=== PATIENT | female | born 1980 | race American Indian/Alaskan Native ===

== ENCOUNTER 2016-09-03 11:25 | Day surgery (SDC) | payer OTHER ==
--- NOTE | 2016-09-03 12:48 | Anesthesia Consultation ---
Anesthesia Consult and Med Hx Date of service: 09/03/16 - Airway Anesthetic Teeth Evaluation: Good ROM Head & Neck: Adequate Mental/Hyoid Distance: Adequate Mallampati Class: Class II Intubation Access Assessment: Probably Good - Pulmonary Exam CTA: Yes - Cardiac Exam Cardiac Exam: RRR - Pre-Operative Health Status ASA Pre-Surgery Classification: ASA2 Proposed Anesthetic Plan: MAC - Pulmonary Hx Asthma: Yes (last inhaler use >3m ago ) - Gastrointestinal Hx Gastroesophageal Reflux Disease: Yes
--- NOTE | 2016-09-03 12:48 | Anesthesia Day of Surgery ---
Anesthesia Day of Surgery - Day of Surgery Patient Examined: Yes Patient H&P Reviewed: Yes Patient is NPO: Yes
[2016-09-03] MEDS ORDERED: NACL 0.9% 1000 ML 1,000 ML IV SCH (13:00)
[2016-09-03] MEDS ORDERED: DIPRIVAN 10 MG/ML IV ONE ×2 (13:08)
[2016-09-03] MEDS ORDERED: XYLOCAINE MPF 2% ONE (14:40)
--- NOTE | 2016-09-03 15:07 | Operative Report ---
Operative Report Operative Report: Date of procedure: 09/03/2016 Procedure: Esophagogastroduodenoscopy multiple mucosal biopsies Attending physician: Antelmo Sequeira MD Beekeeper Farmer: Antelmo Sequeira MD Indication: Patient is a 35-year-old female who presented with a history of epigastric pain persistent with dyspepsia. An upper endoscopy is done to assess patient so that treatment may be directed based on the findings. Consent: Informed consent was obtained after advising the patient and family regarding nature of this procedure, its indications, potential benefits as well as possible complications including but not limited to bleeding perforation and adverse reaction to medication, infection as well as other cardiopulmonary complications. An informed written and verbal consent was then obtained after due opportunity was provided for questions and answers. Monitoring: Patient was monitored continuously with pulse oximetry and electrocardiographic recordings as well as blood pressure recordings. Vital signs remained stable throughout this procedure with no untoward events. Preoperative assessment: Patient was assessed immediately prior to this procedure for capacity to tolerate monitored anesthesia care and moderate sedation as well as general anesthesia. Patient's ASA classification is 2, Mallampati class is 2, Hyomental distance is 3. Instrument: [employer] video endoscope Medications: Propofol given intravenously in divided doses for details please potential records. Description of procedure: Patient was placed in the left lateral decubitus position after achieving sedation, the endoscope was introduced into the esophagus under direct vision. It was then advanced beyond the esophagus into the stomach and then beyond the stomach into the duodenum and to the second portion of the duodenum. It was subsequently withdrawn with careful inspection of all mucosal surfaces with the following findings. Findings: The Z line was slightly irregular at 38 cm. There was a diminutive hiatal hernia seen. There was erythema in the gastric antrum. Biopsies of the antrum were obtained for histopathology. The duodenum was normal to second portion except for 2 small angiectasias seen in the second portion. Impression: Irregular Z line. Small hiatal hernia. Gastric antral erythema. Plan: Follow pathology report from the gastric antral biopsies. Continue current treatment and direct additional treatment based on the pathology report.
--- NOTE | 2016-09-03 15:08 | Discharge Summary ---
Short Stay Discharge Plan Activity: advance as tolerated Weight Bearing Status: Weight Bear as Tolerated Diet: regular Additional Instructions: Post Sedation D/C Instructions When you return home you may resume your regular diet unless otherwise directed. -Go directly home from the hospital and rest quietly. You may resume normal activities tomorrow. -Do NOT drive, return to work, operate any machinery or make any important personal or business decisions today. -Do NOT drink any alcohol or take nerve or sleeping drugs. They add to the effects of the medicine still present in your body. Follow up with: JESSIE GRANT MD [Primary Care Provider] - 7 Days
[2016-09-03 15:16] VITALS: BP 127/81
--- NOTE | 2016-09-03 16:12 | Post Anesthesia Evaluation ---
- Post Anesthesia Evaluation Patient Participated: Yes Airway Patent: Yes Stable Respiratory Function: Yes Temp > 96.8F: Yes Pain Manageable: Yes Adequeate Hydration: Yes Anesthesia Complications: No Block Receding Appropriately: Not Applicable
== END 2016-09-03 11:26 | disposition home or self-care (01) ==
LOC: GIO 11:25
PROVIDERS: ATTEND Internal Medicine Gastroenterology
DX: K22.8 Other specified diseases of esophagus (principal); K31.89 Other diseases of stomach and duodenum; K44.9 Diaphragmatic hernia without obstruction or gangrene; F32.9 Major depressive disorder, single episode, unspecified; J45.909 Unspecified asthma, uncomplicated; K21.9 Gastro-esophageal reflux disease without esophagitis; Z83.3 Family history of diabetes mellitus; Z82.49 Family history of ischemic heart disease and other diseases of the circulatory system; Z80.3 Family history of malignant neoplasm of breast; Z80.1 Family history of malignant neoplasm of trachea, bronchus and lung
CPT/HCPCS: 43239; 81025; 88305; 88342; J2704